=== PATIENT | male | born 1990 | race Caucasian/White ===

== ENCOUNTER 2016-09-07 11:45 | Emergency (ER) | payer OTHER ==
[2016-09-25] MEDS ORDERED: VIIBRYD40 MG PO (15:19)
[2016-09-25] MEDS ORDERED: PROTONIX 40MG T40 MG PO (15:19)
[2016-09-25] MEDS ORDERED: CATAPRES0.1 MG PO (15:22)
[2016-09-25] MEDS ORDERED: CLARITIN10 MG PO (15:23)
[2016-09-25] MEDS ORDERED: IMODIUM2 MG PO (15:23)
== END 2016-09-07 13:27 | disposition home or self-care (01) ==
LOC: FER 11:45
DX: G44.209 Tension-type headache, unspecified, not intractable (principal); K21.9 Gastro-esophageal reflux disease without esophagitis; F41.9 Anxiety disorder, unspecified; F32.9 Major depressive disorder, single episode, unspecified; Z79.899 Other long term (current) drug therapy
CPT/HCPCS: 70450; J1885

== ENCOUNTER 2016-11-23 15:00 | Emergency (ER) | payer OTHER ==
[~2016-11-23 15:00] MED LIST: CATAPRES0.1 MG PO; CLARITIN10 MG PO; IMODIUM2 MG PO; PROTONIX 40MG T40 MG PO; VIIBRYD40 MG PO
== END 2016-11-23 16:44 | disposition left against medical advice (07) ==
LOC: FER 15:00
DX: Z53.8 Procedure and treatment not carried out for other reasons (principal)

== ENCOUNTER 2016-11-27 15:06 | Emergency (ER) | payer OTHER | END 2016-11-27 20:56 | disposition home or self-care (01) | LOC: FER 15:06 | DX: R51 Headache (principal); G89.29 Other chronic pain; M41.86 Other forms of scoliosis, lumbar region; M54.2 Cervicalgia; R20.2 Paresthesia of skin; F17.210 Nicotine dependence, cigarettes, uncomplicated; Z87.19 Personal history of other diseases of the digestive system | CPT/HCPCS: 72100; J1885 ==

== ENCOUNTER 2020-05-22 15:30 | Emergency (ER) | payer OTHER ==
[~2020-05-22 15:30] MED LIST changes: +ATARAX25 MG PO; +HYDROCODON-ACE1 EAC6 PO; +IMITREX100 MG PO; +KEFLEX250 MG PO; +MEDROL 4MG DOSEP4 MG PO; +NEURONTIN600 MG PO; +PEPCID AC20 MG PO; +PHENERGAN25 M1 PO; +TOPROL XL 50 MG50 MG PO
[2020-05-22] MEDS ORDERED: BACTRIM DS TAB1 EACH PO (16:19)
== END 2020-05-22 16:30 | disposition home or self-care (01) ==
LOC: FER 15:30
DX: L02.212 Cutaneous abscess of back [any part, except buttock and flank] (principal); Z88.8 Allergy status to other drugs, medicaments and biological substances
CPT/HCPCS: 99282

== ENCOUNTER 2020-07-28 23:59 | Emergency (ER) | payer OTHER ==
[~2020-07-28 23:59] MED LIST changes: +BACTRIM DS TAB1 EACH PO
[2020-07-29 00:23] LABS: BASOPHIL 0.5 % (0-2); EOSINOPHIL 5.1 % (0-5); HCT 41.9 % (42.0-52.0); HGB 14.4 g/dl (13.2-18.0); LYMPHOCYTE 50.5 % (15-48); MCH 30.1 pg (25.0-31.0); MCHC 34.4 g/dL (32.0-36.0); MCV 87.5 fL (78.0-100.0); MPV 9.9 fL (6.0-9.5); NEUTROPHIL 37.8 % (41-80); NRBC 0; PLT 372 K/uL (150-400); RBC 4.79 M/uL (4.70-6.00); RDW 12.1 % (11.5-14.0); WBC 11.9 K/uL (4.0-10.5)
[2020-07-29 00:39] LABS: ALBUMIN 4.4 g/dL (3.4-5.0); ALKALINE PHOSHATASE 77 U/L (46-116); ALT 65 U/L (16-63); AST 58 U/L (15-37); BILIRUBIN - TOTAL 0.9 mg/dL (0.2-1.0); BUN 8 mg/dL (7-18); BUN/CREAT RATIO (CALC) 10.8 RATIO; CHLORIDE 100 mmol/L (98-107); CO2 (BICARBONATE) 26 mmol/L (21-32); CREATININE 0.74 mg/dL (0.67-1.17); GLUCOSE 113 mg/dL (74-106); LIPASE 50 U/L (73-393); POTASSIUM 2.9 mmol/L (3.5-5.1); TOTAL PROTEIN 8.4 g/dL (6.4-8.2)
[2020-07-29 00:41] LABS: ACETAMINOPHEN (TYLENOL) < 2.0 ug/mL (10.0-30.0)
[2020-07-29 01:53] LABS: BILIRUBIN NEGATIVE (NEGATIVE); BLOOD NEGATIVE Ery/uL (NEGATIVE); CLARITY CLEAR (CLEAR); COLOR YELLOW (YELLOW); GLUCOSE (U) NORMAL (NORMAL); LEUKOCYTES NEGATIVE Leu/uL (NEGATIVE); NITRITE NEGATIVE (NEGATIVE); PROTEIN NEGATIVE (NEGATIVE); UROBILINOGEN 0.2 mg/dL (0.2-1.0)
[2020-07-29 01:57] LABS: ECSTASY (MDMA) NEGATIVE (NEGATIVE); MARIJUANA (THC) POSITIVE (NEGATIVE); METHADONE NEGATIVE (NEGATIVE); OPIATES NEGATIVE (NEGATIVE)
[2020-07-29 01:58] LABS: AMPHETAMINES NEGATIVE (NEGATIVE); BARBITURATES NEGATIVE (NEGATIVE); OXYCODONE NEGATIVE (NEGATIVE)
== END 2020-07-29 05:05 ==
LOC: FER 23:59
PROVIDERS: Emergency Medicine Emergency Medical Services
DX: R45.851 Suicidal ideations (principal); E87.6 Hypokalemia; F32.9 Major depressive disorder, single episode, unspecified; R10.84 Generalized abdominal pain; F17.200 Nicotine dependence, unspecified, uncomplicated; Z88.8 Allergy status to other drugs, medicaments and biological substances; Z79.899 Other long term (current) drug therapy; Z20.822 Contact with and (suspected) exposure to COVID-19
CPT/HCPCS: 36415; 71045; 80053; 80305; 81003; 83690; 85025; 93005; 96372; C9113; G0480; J2550; J3480; J7120; U0002

== ENCOUNTER 2021-03-29 00:27 | Emergency (ER) | payer OTHER ==
[2021-03-29 02:17] LABS: BASOPHIL 0.2 % (0-2); EOSINOPHIL 3.4 % (0-5); HCT 35.9 % (42.0-52.0); HGB 11.9 g/dl (13.2-18.0); LYMPHOCYTE 37.5 % (15-48); MCH 28.7 pg (25.0-31.0); MCHC 33.1 g/dL (32.0-36.0); MCV 86.7 fL (78.0-100.0); MONOCYTE 7.6 % (0-12); MPV 9.7 fL (6.0-9.5); NEUTROPHIL 51.1 % (41-80); NRBC 0; PLT 215 K/uL (150-400); RBC 4.14 M/uL (4.70-6.00); RDW 11.9 % (11.5-14.0)
[2021-03-29 02:24] LABS: INFLUENZA A NAA NEGATIVE (NEGATIVE)
[2021-03-29 02:25] LABS: CORONAVIRUS 2019 SARS-COV-2 POSITIVE (NEGATIVE)
[2021-03-29 02:35] LABS: ALBUMIN 3.8 g/dL (3.4-5.0); BILIRUBIN - TOTAL 0.4 mg/dL (0.2-1.0); MAGNESIUM 2.3 mg/dL (1.8-2.4); POTASSIUM 3.1 mmol/L (3.5-5.1); TOTAL PROTEIN 6.8 g/dL (6.4-8.2)
[2021-03-29 02:38] LABS: CREATININE 0.72 mg/dL (0.67-1.17)
== END 2021-03-29 03:49 | disposition home or self-care (01) ==
LOC: FER 00:27
PROVIDERS: Emergency Medicine
DX: U07.1 COVID-19 (principal); R07.89 Other chest pain; F17.290 Nicotine dependence, other tobacco product, uncomplicated; Z88.1 Allergy status to other antibiotic agents; Z88.8 Allergy status to other drugs, medicaments and biological substances
CPT/HCPCS: 36415; 71045; 80053; 83735; 84484; 85025; 93005; U0002

== ENCOUNTER 2021-11-04 10:24 | Emergency (ER) | payer OTHER | END 2021-11-04 11:55 | disposition home or self-care (01) | LOC: FER 10:24 | DX: M54.12 Radiculopathy, cervical region (principal); I10 Essential (primary) hypertension; Z88.8 Allergy status to other drugs, medicaments and biological substances; Z79.899 Other long term (current) drug therapy | CPT/HCPCS: 72125; 96372; J1170 ==